=== PATIENT | female | born 1980 | race Caucasian/White ===

== ENCOUNTER 2018-10-26 12:01 | Emergency (ER) | payer OTHER ==
[~2018-10-26] VITALS: Ht 167.6 cm; Wt 77.1 kg
[~2018-10-26 12:01] MED LIST: CALCIUM; PRENATAL; ZANTAC 7575 MG PO
[2018-10-26] MEDS ORDERED: VISTARIL 25 MG25 M1 PO (13:04)
[2018-10-26 13:40] VITALS: BP 114/77
== END 2018-10-26 13:43 | disposition home or self-care (01) ==
LOC: ER 12:01
DX: F41.9 Anxiety disorder, unspecified (principal); F17.200 Nicotine dependence, unspecified, uncomplicated